=== PATIENT | male | born 1945 | race Caucasian/White ===

== ENCOUNTER 2018-07-13 10:56 | Emergency (ER) | payer MEDICARE ==
--- NOTE | 2018-07-13 12:02 | EDM.PDOC ---
ED HPI GENERAL MEDICAL PROBLEM - General Chief Complaint: Lower Extremity Injury/Pain Stated Complaint: RIGHT KNEE PAIN FALL WED EVENING Time Seen by Provider: 07/13/18 11:14 Source of Information: Reports: Patient, RN Notes Reviewed History Limitations: Reports: No Limitations - History of Present Illness INITIAL COMMENTS - FREE TEXT/NARRATIVE: Patient is a 72-year-old male who presents to the ED for the evaluation of left knee pain. He states he initially injured this knee a couple weeks ago when he was in the garden when he felt knee pain. He states he went bowling Wednesday night and fell again onto the right knee after slipping. He states that does now continue to hurt, this is a throbbing pain in nature. The patient took 1000 mg of Tylenol about 3 hours ago for pain relief. There is no obvious swelling to the knee, and no obvious bruising to the knee. He has no gait disturbances at this time he is able to ambulate appropriately. He does not have any numbness or tingling into the lower right extremity as well. He states he did put some ice on this this morning for further pain relief. The pain also does not radiate into his right hip. He would rate his pain at an 8 out of 10 today. Right Knee Pain Score (Numeric/FACES): 8 - Related Data Allergies Allergy/AdvReac Type Severity Reaction Status Date / Time No Known Allergies Allergy Verified 07/13/18 11:06 Home Meds: Home Meds Enalapril [Vasotec] 2.5 mg PO BID 07/13/18 [History] metFORMIN [Glucophage XR] 1,000 mg PO BIDMEALS 07/13/18 [History] Past Medical History HEENT History: Reports: Impaired Vision Cardiovascular History: Reports: High Cholesterol, Hypertension Respiratory History: Reports: Sleep Apnea Gastrointestinal History: Reports: None Genitourinary History: Reports: None Musculoskeletal History: Reports: Arthritis, Back Pain, Chronic Neurological History: Reports: None Psychiatric History: Reports: None Endocrine/Metabolic History: Reports: Diabetes, Type II Hematologic History: Reports: None Immunologic History: Reports: None Oncologic (Cancer) History: Reports: None Dermatologic History: Reports: None - Infectious Disease History Infectious Disease History: Reports: None - Past Surgical History HEENT Surgical History: Reports: None Cardiovascular Surgical History: Reports: None Respiratory Surgical History: Reports: None GI Surgical History: Reports: None Male Surgical History: Reports: None Musculoskeletal Surgical History: Reports: None Social & Family History - Family History Family Medical History: Noncontributory HEENT: Reports: None Cardiac: Reports: None Respiratory: Reports: None GI: Reports: None : Reports: None OBGYN: Reports: None Musculoskeletal: Reports: None Neurological: Reports: None Psychiatric: Reports: None Endocrine/Metabolic: Reports: None Hematologic: Reports: None Immunologic: Reports: None Oncologic: Reports: Prostate, Skin - Tobacco Use Smoking Status *Q: Never Smoker - Caffeine Use Caffeine Use: Reports: Soda - Recreational Drug Use Recreational Drug Use: No Review of Systems - Review of Systems Review Of Systems: ROS reveals no pertinent complaints other than HPI. Constitutional: Reports: No Symptoms Eyes: Reports: No Symptoms Ears: Reports: No Symptoms Nose: Reports: No Symptoms Mouth/Throat: Reports: No Symptoms Respiratory: Reports: No Symptoms Cardiovascular: Reports: No Symptoms GI/Abdominal: Reports: No Symptoms Genitourinary: Reports: No Symptoms Musculoskeletal: Reports: Joint Pain (R knee pain), Joint Swelling (r knee, mild ) Skin: Reports: No Symptoms Neurological: Reports: No Symptoms Psychiatric: Reports: No Symptoms ED EXAM, GENERAL - Physical Exam Exam: See Below Exam Limited By: No Limitations General Appearance: Alert, WD/WN, No Apparent Distress Respiratory/Chest: No Respiratory Distress, Lungs Clear, Normal Breath Sounds, No Accessory Muscle Use, Chest Non-Tender Cardiovascular: Normal Peripheral Pulses, Regular Rate, Rhythm, No Murmur Peripheral Pulses: 3+: Dorsalis Pedis (L), Dorsalis Pedis (R) Extremities: Normal Inspection, Normal Range of Motion, Non-Tender, Normal Capillary Refill Neurological: Alert, Oriented, Normal Cognition, Normal Gait, No Motor/Sensory Deficits Psychiatric: Normal Affect, Normal Mood Skin Exam: Warm, Dry, Intact, Normal Color, No Rash Course - Vital Signs Last Recorded V/S: Last Vital Signs Temp 98.2 F 07/13/18 11:11 Pulse 82 07/13/18 11:11 Resp 16 07/13/18 11:11 BP 137/94 H 07/13/18 11:11 Pulse Ox 93 L 07/13/18 11:11 - Re-Assessments/Exams Free Text/Narrative Re-Assessment/Exam: 07/13/18 11:59 Patient presents to the ED for the evaluation of right knee pain. I did order a right knee x-ray and there does not appear to be any acute sign of fracture into his right knee at this time. I will give general recommendations and discharge him home. Is likely that he sprained or strained a ligament or has a small bursitis in nature to his right knee which is causing him the throbbing pain. 07/13/18 12:37 Radiologist reads no acute abnormality of the right knee. Departure - Departure Time of Disposition: 12:00 Disposition: Home, Self-Care 01 Condition: Fair Clinical Impression: Right knee pain Qualifiers: Chronicity: acute Qualified Code(s): M25.561 - Pain in right knee - Discharge Information *PRESCRIPTION DRUG MONITORING PROGRAM REVIEWED*: No *COPY OF PRESCRIPTION DRUG MONITORING REPORT IN PATIENT JERROD: No Instructions: Knee Pain, Adult, [id number] Referrals: PCP,Not In Area [Primary Care Provider] - Forms: ED Department Discharge Additional Instructions: You have been evaluated in the ED for your right knee pain. Your x-ray demonstrated no obvious signs of an acute bony fracture. Please use ice as tolerated to the affected area. You may take tylenol 500 mg or ibuprofen 600mg q6 hrs for pain relief. Please do so until you have a tolerable level of pain with activity. Do not exceed 4000mg tylenol, Do not exceed 3200mg ibuprofen in a 24 hour time period. You may also obtain a knee immobilizing brace and use this to the right knee if this provides further pain relief. This can be obtained at any pharmacy or retailer. If your pain does not get better in roughly 1-2 weeks' time recommend that you follow up with your regular provider in [place]. Please return to ED if your symptoms should change or worsen.
--- NOTE | 2018-07-13 12:19 | CR ---
Right knee: AP, lateral and sunrise patellar views of the right knee were obtained. Medial and lateral joint compartments are maintained in height. Patellofemoral joint appears within normal limits. No joint effusion is seen. Osteopenia is noted. No acute fracture or other abnormality is seen. Impression: 1. Unremarkable three-view nonweightbearing right knee exam. Diagnostic code #2
== END 2018-07-13 12:24 | disposition home or self-care (01) ==
LOC: JD.ED 10:56
DX: M25.561 Pain in right knee (principal); E78.00 Pure hypercholesterolemia, unspecified; I10 Essential (primary) hypertension; E11.9 Type 2 diabetes mellitus without complications; W01.0XXA Fall on same level from slipping, tripping and stumbling without subsequent striking against object, initial encounter; Z79.84 Long term (current) use of oral hypoglycemic drugs; Z79.899 Other long term (current) drug therapy
CPT/HCPCS: 73562-26-RT; 73562-RT; 99282; 99283-25